=== PATIENT | male | born 1980 | race Caucasian/White ===

== ENCOUNTER 2025-04-28 14:54 | Observation (INO) ==
[2025-04-28] MEDS: NS 1,000 ML IV 1,000 ML IV ONE ×2 (15:19→16:29)
--- NOTE | 2025-04-28 15:22 | EKG ---
Test Reason : weakness Blood Pressure : */* mmHG Vent. Rate : 78 BPM Atrial Rate : 78 BPM P-R Int : 112 ms QRS Dur : 96 ms QT Int : 408 ms P-R-T Axes : 24 105 60 degrees QTc Int : 465 ms Normal sinus rhythm Rightward axis Borderline ECG When compared with ECG of 27-JUL-2023 08:53, Borderline criteria for Lateral infarct are no longer present T wave inversion now evident in Anterior leads Confirmed by Niko Rutledge MD ([id number]) on 04/28/2025 5:12:58 PM Referred By: Confirmed By: Niko Rutledge MD
[2025-04-28 15:26] LABS: MEAN PLATELET VOLUME 9.4 fL (7.4-11.0); RED CELL DISTRIBUTION WIDTH 13.9 % (11.6-16.5)
[2025-04-28 15:26] LABS: BLOOD/HEMOGLOBIN,URINE 3+ (NEGATIVE); LEUKOCYTE ESTERASE ,URINE NEGATIVE (NEGATIVE); NITRITES,URINE NEGATIVE (NEGATIVE)
[2025-04-28 15:41] LABS: APPEARANCE,URINE SLIGHTLY HAZY (CLEAR)
[2025-04-28 15:42] LABS: SQUAMOUS EPITHELIAL CELL,UR NEGATIVE /HPF (NEGATIVE)
[2025-04-28 15:44] LABS: CREATININE 1.06 mg/dL (0.70-1.30); eGFR NON BLACK RACES > 60 (>60)
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
[2025-04-28] MEDS: POTASSIUM CHLORIDE LIQ PO ONE (17:26)
[2025-04-28] MEDS ORDERED: TYLENOL 325 MG TAB PO PRN (17:33)
[2025-04-28] MEDS: NS 1,000 ML IV 1,000 ML ONE (17:46)
[2025-04-28] MEDS: POTASSIUM CHLORIDE LIQ ONE (17:47)
[2025-04-28] MEDS ORDERED: CONSULT PHARMACY - POTASSIUM & MAGNESIUM XX SCH (18:00)
[2025-04-28 18:45] VITALS: BMI 25.1
[2025-04-28] MEDS: NS 1,000 ML IV 1,000 ML IV SCH (18:50)
[2025-04-28] MEDS: COLACE CAP 100 MG PO SCH (21:58)
[2025-04-28] MEDS: MILK OF MAGNESIA PO SCH (21:58)
--- NOTE | 2025-04-29 05:12 | RAD ---
EXAM: CHEST, 1 VIEW HISTORY: confusion, anxious leg cramps sob; COMPARISON: 07/27/2023 FINDINGS: The trachea is midline. The cardiac silhouette is unremarkable . The lungs are clear without focal infiltrate or effusion. The bony thorax is unremarkable. IMPRESSION: Normal chest THIS IS AN ELECTRONICALLY VERIFIED FINAL REPORT 04/29/2025 5:08 AM - Electronically signed by Jonathan La MD
[2025-04-29 05:44] LABS: MEAN PLATELET VOLUME 9.5 fL (7.4-11.0); RED CELL DISTRIBUTION WIDTH 14.0 % (11.6-16.5)
[2025-04-29 06:09] LABS: COR CA(FOR HYPOALB) 8.8 mg/dL (8.5-10.1); COR NA(FOR HYPERGLY) 144 mmol/L (136-145); CREATININE 0.88 mg/dL (0.70-1.30); eGFR NON BLACK RACES > 60 (>60)
[2025-04-29] MEDS ORDERED: CONSULT PHARMACY - POTASSIUM & MAGNESIUM XX SCH (07:00)
[2025-04-29] MEDS: NS + KCL 20 MEQ/L 1,000 ML IV SCH (08:06)
[2025-04-29] MEDS ORDERED: K-DUR TAB 20 MEQ PO SCH (09:00)
--- NOTE | 2025-04-29 10:18 | DR.H&P ---
H&P History & Physical for Day of: H&P Date: 04/29/25 Chief Complaint Chief Complaint: generalized pain, muscle ache History of Present Illness History of Present Illness: Patient is a 44-year-old male with a hx of illicit drug use presented with generalized pain and muscle ache. He was [place] the [place] from the police. ER workup showed elevated WBC, creatinine kinase 2391. He was started on IV fluids and pain medicine. Chest x-ray did not show any infection. UA was negative. He was admitted for further evaluation. He is feeling better this morning. His CK is trending down 1262. Labs/imaging reviewed: - WBC 7.2 hemoglobin 13.6 potassium 3.0 creatinine 0.88 - Total CK1 262 Plan: Admit to [facility]. Continue hydration. Replace electrolytes as per protocol. Continue pain control. Ambulate as tolerated. Monitor a.m. labs and imaging. Past Medical History Past Medical History: GERD Past Surgical History Surgical History: Other Family History Family Medical History: Diabetes Mellitus, Cancer, [place], Coronary Artery Disease, Heart Failure, Sudden Cardiac and Hypertension Social History Does patient currently use any type of tobacco product: Yes Have you used tobacco products in the last 12 months: Yes Type of Tobacco Use: DIP How many years tobacco product used: 30 Does any household member use tobacco: Yes Alcohol Use: Rarely Drug Use: None Medications Home Medications: Home Medications Medication Instructions Recorded Confirmed Type NK 04/28/25 04/28/25 History Allergies Allergies Allergy/AdvReac Type Severity Reaction Status Date / Time codeine Allergy Verified 04/28/25 15:20 Labs 04/29/25 05:16 04/29/25 05:16 Labs: Laboratory WBC 7.2 X10^3/uL (3.6-10.0) 04/29/25 05:16 RBC 4.54 X10^6/uL (4.7-6.0) L 04/29/25 05:16 Hgb 13.6 g/dL (13.5-18.0) 04/29/25 05:16 Hct 39.6 % (42.0-54.0) L 04/29/25 05:16 MCV 87.2 fL (80.0-100.0) 04/29/25 05:16 MCH 30.1 pg (27.0-34.0) 04/29/25 05:16 MCHC 34.5 g/dL (33.0-35.0) 04/29/25 05:16 RDW 14.0 % (11.6-16.5) 04/29/25 05:16 Plt Count 207 X10^3/uL (150.0-450.0) 04/29/25 05:16 MPV 9.5 fL (7.4-11.0) 04/29/25 05:16 Neut % (Auto) 60.1 % (42.0-75.0) 04/29/25 05:16 Lymph % (Auto) 21.2 % (21.0-51.0) 04/29/25 05:16 [place] % (Auto) 11.2 % (0.0-13.0) 04/29/25 05:16 Eos % (Auto) 6.4 % (0.9-2.9) H 04/29/25 05:16 Baso % (Auto) 1.1 % (0.2-1.0) H 04/29/25 05:16 Neut # (Auto) 4.3 x10^3/uL (2.2-4.8) 04/29/25 05:16 Lymph # (Auto) 1.5 X10^3/uL (1.3-2.9) 04/29/25 05:16 [place] # (Auto) 0.8 x10^3/uL (0.3-0.8) 04/29/25 05:16 Eos # (Auto) 0.5 x10^3/uL (0.0-0.2) H 04/29/25 05:16 Baso # (Auto) 0.1 X10^3/uL (0.0-0.1) 04/29/25 05:16 Absolute Nucleated RBC 0.1 /100WBC 04/29/25 05:16 Sodium 144 mmol/L (136-145) 04/29/25 05:16 Corrected Sodium 144 mmol/L (136-145) 04/29/25 05:16 Potassium 3.0 mmol/L (3.5-5.1) L 04/29/25 05:16 Chloride 108 mmol/L (98-107) H 04/29/25 05:16 Carbon Dioxide 28.3 mmol/L (21-32) 04/29/25 05:16 BUN 18 mg/dL (7-18) 04/29/25 05:16 Creatinine 0.88 mg/dL (0.70-1.30) 04/29/25 05:16 Est GFR (MDRD) Af Amer > 60 (>60) 04/29/25 05:16 Est GFR (MDRD) Non-Af > 60 (>60) 04/29/25 05:16 Glucose 119 mg/dL (65-99) H 04/29/25 05:16 Calcium 8.0 mg/dL (8.5-10.1) L 04/29/25 05:16 Corrected Calcium 8.8 mg/dL (8.5-10.1) 04/29/25 05:16 Magnesium 2.2 mg/dL (2.0-2.9) 04/29/25 05:16 Total Bilirubin 0.60 mg/dL (0.2-1.0) 04/29/25 05:16 AST 40 Units/L (15-37) H 04/29/25 05:16 ALT 44 Units/L (12-78) 04/29/25 05:16 Alkaline Phosphatase 62 Units/L (46-116) 04/29/25 05:16 Creatine Kinase 1262 Units/L (39-308) H 04/29/25 05:16 Troponin I High Sens 54.2 ng/L (4.0-60.0) 04/28/25 15:08 Total Protein 6.2 g/dL (6.4-8.2) L 04/29/25 05:16 Albumin 3.0 g/dL (3.4-5.0) L 04/29/25 05:16 Globulin 3.2 g/dL (2.5-4.5) 04/29/25 05:16 Albumin/Globulin Ratio 0.9 Ratio (1.1-2.1) L 04/29/25 05:16 Specimen Type Catherized urine 04/28/25 15:10 Urine Color Dark yellow (YELLOW) 04/28/25 15:10 Urine Appearance Slightly hazy (CLEAR) 04/28/25 15:10 Urine pH 6.0 (5.0 - 8.0) 04/28/25 15:10 Ur Specific [place] 1.025 (1.000-1.030) 04/28/25 15:10 Urine Protein 3+ (NEGATIVE) 04/28/25 15:10 Urine Glucose (UA) Negative (NEGATIVE) 04/28/25 15:10 Urine Ketones 2+ (NEGATIVE) 04/28/25 15:10 Urine Blood 3+ (NEGATIVE) 04/28/25 15:10 Urine Nitrite Negative (NEGATIVE) 04/28/25 15:10 Urine Bilirubin Negative (NEGATIVE) 04/28/25 15:10 Urine Urobilinogen 1+ (NORMAL) 04/28/25 15:10 Ur Leukocyte Esterase Negative (NEGATIVE) 04/28/25 15:10 Urine RBC 5-10 /HPF (0-3) A 04/28/25 15:10 Urine WBC 3-5 /HPF (0-5) 04/28/25 15:10 Ur Squamous Epith Cells Negative /HPF (NEGATIVE) 04/28/25 15:10 Amorphous Sediment 3+ /HPF (NEGATIVE) 04/28/25 15:10 Urine Bacteria Negative /HPF (NEGATIVE) 04/28/25 15:10 Urine Mucus Moderate /HPF (NEGATIVE) 04/28/25 15:10 Ur Culture Indicated? No/not indicated 04/28/25 15:10 Urine Opiates Screen Negative (NEG=<300) 04/28/25 15:10 Urine Methadone Screen Negative (NEG=<300) 04/28/25 15:10 Ur Barbiturates Screen Negative (NEG=<200) 04/28/25 15:10 Ur Phencyclidine Scrn Negative (NEG=<25) 04/28/25 15:10 Ur Amphetamines Screen Positive (NEG=<1000) 04/28/25 15:10 U Benzodiazepines Scrn Negative (NEG=<200) 04/28/25 15:10 Urine Cocaine Screen Positive (NEG=<300) 04/28/25 15:10 U Marijuana (THC) Screen Negative (NEG=<50) 04/28/25 15:10 Review of Systems Constitutional: Weakness Eyes: No Symptoms Reported ENT: No Symptoms Reported Respiratory: No Symptoms Reported Cardiovascular: No Symptoms Reported Gastrointestinal: No Symptoms Reported Genitourinary: No Symptoms Reported Musculoskeletal: Other (Generalized pain/muscle ache) Skin: No Symptoms Reported Neurological: No Symptoms Reported Physical Exam Vital Signs: Vital Signs Temperature 98.2 F Temperature 97.5 F Pulse Rate [Right Brachial] 81 Pulse Rate [Right Brachial] 58 Respiratory Rate 21 Respiratory Rate 19 Blood Pressure [Right Arm] 125/66 Blood Pressure [Right Arm] 95/58 O2 Sat by Pulse Oximetry 97 O2 Sat by Pulse Oximetry 98 Oriented: Normal Respiratory: Clear Throughout Cardiovascular: Normal Auscultation: Bowel Sounds: Normal Tenderness: Normal Skin: Normal Musculoskeletal: Normal Psychiatric: Normal Mood Description: Calm Affect: Normal Speech Pattern: Clear and Appropriate Assessment/Plan (1) Rhabdomyolysis: Qualifiers: Rhabdomyolysis type: traumatic Encounter type: initial encounter Q ualified Code(s): T79.6XXA - Traumatic ischemia of muscle, initial encounter Status: Acute (2) Illicit drug use: Status: Acute (3) Substance abuse: Status: Acute (4) Hypokalemia: Status: Acute Review H&P Reviewed: Yes Patient was examined?: Yes
[2025-04-29] MEDS: MAALOX or MYLANTA PO PRN (17:57)
[2025-04-30 04:15] VITALS: RESP 19; O2SAT 97
[2025-04-30 06:01] LABS: MEAN PLATELET VOLUME 9.8 fL (7.4-11.0); RED CELL DISTRIBUTION WIDTH 14.3 % (11.6-16.5)
[2025-04-30 06:13] LABS: COR CA(FOR HYPOALB) 8.9 mg/dL (8.5-10.1); CREATININE 0.68 mg/dL (0.70-1.30); eGFR NON BLACK RACES > 60 (>60)
[2025-04-30] MEDS ORDERED: CONSULT PHARMACY - POTASSIUM & MAGNESIUM XX SCH (08:00)
[2025-04-30 08:31] VITALS: BP 121/76; PULSE 73; TEMP 98
--- NOTE | 2025-05-01 16:08 | W.DIS.FURT ---
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 [place]. ER workup showed elevated WBC, creatinine kinase 2391. He was started on IV fluids and pain medicine. Chest x-ray did not show any infection. UA was negative. He was admitted for further evaluation. His labs were monitored daily and electrolytes replaced as needed. He remained on IV fluids. His total CK trended down. Patient was feeling better, tolerating p.o. intake. He was able to ambulate in the room. He was stable to be discharged. Vital Signs: Vital Signs (72 hours) 04/28/25 15:08 04/28/25 15:18 04/28/25 15:30 Temperature Pulse Rate 82 81 Pulse Rate [Right Brachial] Respiratory Rate 49 H 23 Blood Pressure Blood Pressure [Right Arm] O2 Sat by Pulse Oximetry 99 100 Oxygen Delivery Method Room Air 04/28/25 15:30 04/28/25 15:45 04/28/25 16:00 Temperature Pulse Rate 76 Pulse Rate [Right Brachial] Respiratory Rate 29 H Blood Pressure 137/85 135/71 Blood Pressure [Right Arm] O2 Sat by Pulse Oximetry 98 Oxygen Delivery Method 04/28/25 16:00 04/28/25 16:15 04/28/25 16:30 Temperature Pulse Rate 70 70 80 Pulse Rate [Right Brachial] Respiratory Rate 27 H 24 25 H Blood Pressure Blood Pressure [Right Arm] O2 Sat by Pulse Oximetry 97 100 100 Oxygen Delivery Method 04/28/25 16:30 04/28/25 16:45 04/28/25 17:00 Temperature Pulse Rate 67 65 Pulse Rate [Right Brachial] Respiratory Rate 26 H 18 Blood Pressure 132/75 Blood Pressure [Right Arm] O2 Sat by Pulse Oximetry 100 100 Oxygen Delivery Method 04/28/25 17:00 04/28/25 17:15 04/28/25 17:22 Temperature Pulse Rate 70 Pulse Rate [Right Brachial] Respiratory Rate 40 H Blood Pressure 123/74 Blood Pressure [Right Arm] O2 Sat by Pulse Oximetry 99 Oxygen Delivery Method Room Air 04/28/25 17:40 04/28/25 19:00 04/28/25 20:00 Temperature 98.0 F 97.8 F Pulse Rate Pulse Rate [Right Brachial] 62 73 Respiratory Rate 20 19 Blood Pressure Blood Pressure [Right Arm] 128/75 110/72 O2 Sat by Pulse Oximetry 99 97 Oxygen Delivery Method Room Air Room Air Room Air 04/29/25 04:00 04/29/25 07:00 04/29/25 07:54 Temperature 97.5 F L 98.2 F Pulse Rate Pulse Rate [Right Brachial] 58 L 81 Respiratory Rate 19 21 Blood Pressure Blood Pressure [Right Arm] 95/58 125/66 O2 Sat by Pulse Oximetry 98 97 Oxygen Delivery Method Room Air Room Air Room Air 04/29/25 12:00 04/29/25 15:50 04/29/25 19:00 Temperature 97.4 F L 97.8 F Pulse Rate Pulse Rate [Right Brachial] 58 L 60 Respiratory Rate 21 21 Blood Pressure Blood Pressure [Right Arm] 110/67 102/64 O2 Sat by Pulse Oximetry 98 98 Oxygen Delivery Method Room Air Room Air Room Air 04/29/25 20:00 04/30/25 00:00 04/30/25 04:00 Temperature 97.7 F 98.1 F 97.8 F Pulse Rate Pulse Rate [Right Brachial] 77 61 57 L Respiratory Rate 20 22 19 Blood Pressure Blood Pressure [Right Arm] 110/66 117/69 121/81 O2 Sat by Pulse Oximetry 97 95 97 Oxygen Delivery Method Room Air Room Air Room Air 04/30/25 08:00 Temperature 98 F Pulse Rate Pulse Rate [Right Brachial] 73 Respiratory Rate 19 Blood Pressure Blood Pressure [Right Arm] 121/76 O2 Sat by Pulse Oximetry 97 Oxygen Delivery Method Room Air Labs: Laboratory Last Values WBC 6.3 X10^3/uL (3.6-10.0) 04/30/25 05:31 RBC 4.41 X10^6/uL (4.7-6.0) L 04/30/25 05:31 Hgb 13.1 g/dL (13.5-18.0) L 04/30/25 05:31 Hct 38.8 % (42.0-54.0) L 04/30/25 05:31 MCV 88.0 fL (80.0-100.0) 04/30/25 05:31 MCH 29.8 pg (27.0-34.0) 04/30/25 05:31 MCHC 33.9 g/dL (33.0-35.0) 04/30/25 05:31 RDW 14.3 % (11.6-16.5) 04/30/25 05:31 Plt Count 175 X10^3/uL (150.0-450.0) 04/30/25 05:31 MPV 9.8 fL (7.4-11.0) 04/30/25 05:31 Neut % (Auto) 69.8 % (42.0-75.0) 04/30/25 05:31 Lymph % (Auto) 16.2 % (21.0-51.0) L 04/30/25 05:31 [place] % (Auto) 8.5 % (0.0-13.0) 04/30/25 05:31 Eos % (Auto) 4.9 % (0.9-2.9) H 04/30/25 05:31 Baso % (Auto) 0.6 % (0.2-1.0) 04/30/25 05:31 Neut # (Auto) 4.4 x10^3/uL (2.2-4.8) 04/30/25 05:31 Lymph # (Auto) 1.0 X10^3/uL (1.3-2.9) L 04/30/25 05:31 [place] # (Auto) 0.5 x10^3/uL (0.3-0.8) 04/30/25 05:31 Eos # (Auto) 0.3 x10^3/uL (0.0-0.2) H 04/30/25 05:31 Baso # (Auto) 0.0 X10^3/uL (0.0-0.1) 04/30/25 05:31 Absolute Nucleated RBC 0.1 /100WBC 04/30/25 05:31 Sodium 144 mmol/L (136-145) 04/30/25 05:31 Corrected Sodium TNP 04/30/25 05:31 Potassium 3.6 mmol/L (3.5-5.1) 04/30/25 05:31 Chloride 110 mmol/L (98-107) H 04/30/25 05:31 Carbon Dioxide 26.7 mmol/L (21-32) 04/30/25 05:31 BUN 8 mg/dL (7-18) 04/30/25 05:31 Creatinine 0.68 mg/dL (0.70-1.30) L 04/30/25 05:31 Est GFR (MDRD) Af Amer > 60 (>60) 04/30/25 05:31 Est GFR (MDRD) Non-Af > 60 (>60) 04/30/25 05:31 Glucose 89 mg/dL (65-99) 04/30/25 05:31 Calcium 7.9 mg/dL (8.5-10.1) L 04/30/25 05:31 Corrected Calcium 8.9 mg/dL (8.5-10.1) 04/30/25 05:31 Magnesium 2.2 mg/dL (2.0-2.9) 04/29/25 05:16 Total Bilirubin 0.30 mg/dL (0.2-1.0) 04/30/25 05:31 AST 24 Units/L (15-37) 04/30/25 05:31 ALT 40 Units/L (12-78) 04/30/25 05:31 Alkaline Phosphatase 66 Units/L (46-116) 04/30/25 05:31 Creatine Kinase 445 Units/L (39-308) H 04/30/25 05:31 Troponin I High Sens 54.2 ng/L (4.0-60.0) 04/28/25 15:08 Total Protein 5.7 g/dL (6.4-8.2) L 04/30/25 05:31 Albumin 2.8 g/dL (3.4-5.0) L 04/30/25 05:31 Globulin 2.9 g/dL (2.5-4.5) 04/30/25 05:31 Albumin/Globulin Ratio 1.0 Ratio (1.1-2.1) L 04/30/25 05:31 Specimen Type Catherized urine 04/28/25 15:10 Urine Color Dark yellow (YELLOW) 04/28/25 15:10 Urine Appearance Slightly hazy (CLEAR) 04/28/25 15:10 Urine pH 6.0 (5.0 - 8.0) 04/28/25 15:10 Ur Specific [place] 1.025 (1.000-1.030) 04/28/25 15:10 Urine Protein 3+ (NEGATIVE) 04/28/25 15:10 Urine Glucose (UA) Negative (NEGATIVE) 04/28/25 15:10 Urine Ketones 2+ (NEGATIVE) 04/28/25 15:10 Urine Blood 3+ (NEGATIVE) 04/28/25 15:10 Urine Nitrite Negative (NEGATIVE) 04/28/25 15:10 Urine Bilirubin Negative (NEGATIVE) 04/28/25 15:10 Urine Urobilinogen 1+ (NORMAL) 04/28/25 15:10 Ur Leukocyte Esterase Negative (NEGATIVE) 04/28/25 15:10 Urine RBC 5-10 /HPF (0-3) A 04/28/25 15:10 Urine WBC 3-5 /HPF (0-5) 04/28/25 15:10 Ur Squamous Epith Cells Negative /HPF (NEGATIVE) 04/28/25 15:10 Amorphous Sediment 3+ /HPF (NEGATIVE) 04/28/25 15:10 Urine Bacteria Negative /HPF (NEGATIVE) 04/28/25 15:10 Urine Mucus Moderate /HPF (NEGATIVE) 04/28/25 15:10 Ur Culture Indicated? No/not indicated 04/28/25 15:10 Urine Opiates Screen Negative (NEG=<300) 04/28/25 15:10 Urine Methadone Screen Negative (NEG=<300) 04/28/25 15:10 Ur Barbiturates Screen Negative (NEG=<200) 04/28/25 15:10 Ur Phencyclidine Scrn Negative (NEG=<25) 04/28/25 15:10 Ur Amphetamines Screen Positive (NEG=<1000) 04/28/25 15:10 U Benzodiazepines Scrn Negative (NEG=<200) 04/28/25 15:10 Urine Cocaine Screen Positive (NEG=<300) 04/28/25 15:10 U Marijuana (THC) Screen Negative (NEG=<50) 04/28/25 15:10 Reason For Visit: RHABDOMYOLYSIS, SUBSTANCE ABUSE Discharge Diagnosis All Active Problems (Updated 04/29/25 @ 10:18 by Arline Sheth MD) Hypokalemia (Acute) Amphetamine abuse (Acute) Cocaine abuse (Acute) Substance abuse (Acute) Rhabdomyolysis (Acute) Illicit drug use (Acute) Laceration - injury (Active) Plan of Treatment: Continue with present treatment and follow up plan. Pt is to keep follow up appointment as instructed and take medications as ordered. Discharge Medications Discharge Medications: codeine Allergy (Verified 04/28/25 15:20) CONTINUE taking the following medications NK 04/28/25 [History] Discharge Disposition Assessment: No distress noted at discharge. Discharge Disposition: Half-Way Discharge Condition: Stable Discharge Plan Discharge Plan Hospital Course: Patient is a 44-year-old male with a hx of illicit drug use presented with generalized pain and muscle ache. [place] ER workup showed elevated WBC, creatinine kinase 2391. He was started on IV fluids and pain medicine. Chest x-ray did not show any infection. UA was negative. He was admitted for further evaluation. His labs were monitored daily and electrolytes replaced as needed. He remained on IV fluids. His total CK trended down. Patient was feeling better, tolerating p.o. intake. He was able to ambulate in the room. He was stable to be discharged. Patient Disposition: 01 HOME, SELF-CARE Condition: Stable Health Concerns: Post Hospitalization: new medications and changes needed to prevent readmission or further decline. Pt educated and given instructions on all concerns. Care Plan Goals: Problem: Fluid Volume Deficit Goal: Maintain/Improved Adequate hydration. Instructions: Follow provided instructions. Follow up with primary physician as directed. Contact primary care physician or report to the closest Emergency Room if condition worsens. Plan of Treatment: Continue with present treatment and follow up plan. Pt is to keep follow up appointment as instructed and take medications as ordered. Assessment: No distress noted at discharge. Prescription drug monitoring program results: PDMP reviewed and no concerns identified Prescriptions: No Action NK Orders to Discharge Patient Discharge Orders: Discharge (Routine); Ordered 04/30/25 Ordered By: Arline Sheth Follow ups/Referrals Follow ups/Referrals: [facility] [Other] Referral Note: Follow up as needed. Instructions Instructions: Amphetamine Use Disorder, Cocaine Use Disorder, Hypokalemia, Muscle Weakness (Myopathy): What to Know, Tobacco Use Disorder Stand Alone Forms: Excuse From Work or School, Find Help Web Site, Post Hospital Follow Up Care Print Language: GREEK
== END 2025-04-30 10:20 | disposition home or self-care (01) ==
LOC: MED/SURG 14:54 → ER 14:54 → MED/SURG 17:35
PROVIDERS: ADMIT Internal Medicine; ATTEND Internal Medicine
DX: R74.8 Abnormal levels of other serum enzymes; K21.9 Gastro-esophageal reflux disease without esophagitis; F41.8 Other specified anxiety disorders; F14.90 Cocaine use, unspecified, uncomplicated; M62.82 Rhabdomyolysis; E87.6 Hypokalemia; D72.828 Other elevated white blood cell count; R53.1 Weakness; Z60.8 Other problems related to social environment; R41.82 Altered mental status, unspecified; Z65.8 Other specified problems related to psychosocial circumstances; R73.09 Other abnormal glucose; E80.6 Other disorders of bilirubin metabolism; F15.90 Other stimulant use, unspecified, uncomplicated; Z65.9 Problem related to unspecified psychosocial circumstances; R06.02 Shortness of breath